=== PATIENT | female | born 1985 | race African-American/Black ===

== ENCOUNTER 2023-04-11 16:16 | Emergency (ER) | payer BC, OTHER ==
[2023-04-11 16:46] LABS: Mean Corpuscular HGB CONC 32.1 g/dL (32.0-36.0); Mean Corpuscular Hemoglobin 27.8 pg (27.0-31.0); Mean Corpuscular Volume 86.7 fl (78.0-98.0); Mean Platelet Volume 7.2 fL (7.4-10.4); Platelet Count 408 10x3/uL (130-400); RBC Distribution Width 13.4 % (11.5-14.5); Red Blood Cell (RBC) Count 4.67 mill/uL (4.20-5.40); White Blood Cell (WBC) Count 7.6 10x3/uL (4.8-10.8)
[2023-04-11] MEDS ORDERED: Aspirin 325 MG TAB ONE (16:52)
[2023-04-11 16:57] LABS: BHCG - Serum Negative (NEGATIVE); Pregs Control Background? CLEAR/WHITE (CLR/WHITE); Pregs Control Bar Appear? YES (CONTROL BAR)
[2023-04-11 17:09] LABS: ALT (SGPT) 23 U/L (8-55); AST (SGOT) 18 U/L (5-34); Albumin 4.3 g/dL (3.5-5.0); Alkaline Phosphatase 65 U/L (40-110); Anion Gap 15 mmol/L (10-20); BUN (Urea Nitrogen) 13 mg/dL (7.0-18.7); Band 3 % (5-11); Bilirubin, Total 0.3 mg/dL (0.2-1.2); Calc. Creatinine Clearance 0 mL/min (70-130); Calcium 9.4 mg/dL (7.8-10.44); Carbon Dioxide 24 mmol/L (22-29); Chloride 105 mmol/L (98-107); Eosinophils 2 % (0-10); Estimated GFR 57; Globulin 2.7 g/dL (2.4-3.5); Glucose 85 mg/dL (70-105); Lipase 38 U/L (8-78); Lymphocytes 28 % (21-51); MDiff Complete? YES; Magnesium 1.8 mg/dL (1.6-2.6); Monocytes 7 % (0-10); Neutrophil 59 % (42-75); Platelet Adequacy Comment Appears Adequate; Sodium 140 mmol/L (136-145)
[2023-04-11] MEDS ORDERED: Ondansetron PF 4 MG/2 ML Vial ONE (17:19)
[2023-04-11] MEDS ORDERED: Fentanyl 100 MCG/2 ML VIAL ONE (17:20)
== END 2023-04-11 18:40 | disposition home or self-care (01) ==
LOC: MADERS 16:16
DX: R07.2 Precordial pain (principal)
CPT/HCPCS: 71045; 80053; 83690; 83735; 83880; 84484; 84703; 85025; 93005; 94760; 96374; 96375; J2405; J3010